=== PATIENT | male | born 1955 | race Caucasian/White ===

== ENCOUNTER 2023-06-30 11:05 | Emergency (ER) | payer OTHER ==
[2023-06-30] MEDS ORDERED: dexAMETHasone 10 MG/ML VIAL ONE ×2 (11:18→11:28)
[2023-06-30] MEDS ORDERED: IPRATROPIUM BROM 0.5MG/2.5ML ONE (11:28)
[2023-06-30] MEDS ORDERED: LEVALBUTEROL 1.25 MG/3 ML NEB ONE (11:28)
[2023-06-30] MEDS ORDERED: CLINDAMYCIN 900MG/D5W 900 MG/50 ML IVPB IV ONE (11:28)
[2023-06-30] MEDS ORDERED: DIPHENHYDRAMINE 50 MG/ML VIAL ONE (11:29)
[2023-06-30 11:34] LABS: Absolute Lymphocytes (CBC) 1.3 K/uL (0.7-4.9); Hematocrit 41.9 % (39.6-49.0); Lymphocytes % 16.2 % (15.3-44.8); MCV 90.2 fL (80-100); MPV 7.9 fL (7.6-11.3); Platelets 294 thou/uL (152-406); RBC Red Blood Cell Count 4.64 M/uL (4.33-5.43)
[2023-06-30 11:36] LABS: Protime INR 1.08
[2023-06-30 11:52] LABS: Albumin 3.9 g/dL (3.4-5.0); Bilirubin Direct 0.2 mg/dL (0-0.2); Bilirubin Indirect, Calculated 0.4 mg/dL (0.2-0.8); Bilirubin Total 0.6 mg/dL (0.2-1.0); Magnesium 1.9 mg/dL (1.6-2.4); Potassium 3.3 mEq/L (3.5-5.1); Protein, Total 8.4 g/dL (6.4-8.2); Troponin High Sensitivity 18.3 pg/mL (<58.9)
[2023-06-30 11:59] LABS: SARS-CoV-2 Antigen Rapid Res Negative (Negative)
--- NOTE | 2023-06-30 12:33 | RAD REPORT ---
EXAM DESCRIPTION: Praveen Single View06/30/2023 11:23 am CLINICAL HISTORY: cough COMPARISON: none FINDINGS: The lungs appear clear of acute infiltrate. The heart may be borderline enlarged. Aorta i s tortuous IMPRESSION: No acute abnormalities displayed
--- NOTE | 2023-06-30 12:33 | RAD REPORT ---
EXAM DESCRIPTION: CT - Soft Tissue Neck W/Contr - 06/30/2023 12:09 pm CLINICAL HISTORY: Neck pain with sore throat. Neck swelling COMPARISON: None. TECHNIQUE: Computed axial tomography of the neck was obtained. 50 cc Isovue 300 was administered in travenously. Coronal and sagittal reconstruction was performed. All CT scans are performed using dose optimization technique as appropriate and may include automated exposure control or mA/KV adjustment according to patient size. FINDINGS: 3.3 centimeter mass is present within the left glottis involving the left vocal cord. A p ortion of the mass extends into the left supraglottis as well as left subglottis regions. There is de struction of portion of the left thyroid cartilage. Airway is narrowed. Left arytenoid cartilage is p ositioned medially and is sclerotic. No lymphadenopathy seen The parotid, submandibular and thyroid glands appear unremarkable. 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 Destruction of a portion of the left thyroid cartilage is present
--- NOTE | 2023-06-30 12:58 | EDPHYS ---
Physician Documentation [facility] Name: Sergey Husain Age: 68 yrs Sex: Male : 1955 Arrival Date: 06/30/2023 Time: 11:05 Bed 3 Private MD: ED Physician Saud Valera HPI: 06/30 12:48 This 68 yrs old Male presents to ER via Ambulatory with complaints of vanessa Breathing Difficulty. 12:48 The patient has shortness of breath with light activity. Onset: The symptoms/episode vanessa began/occurred 4 week(s) ago. Duration: The symptoms are continuous, and are steadily getting worse. The patient's shortness of breath is aggravated by exertion, light activity, supine position, talking, walking. Associated signs and symptoms: Pertinent positives: non-productive cough. Severity of symptoms: At their worst the symptoms were moderate in the emergency department the symptoms are unchanged. The patient has not experienced similar symptoms in the past. Historical: - Allergies: 11:05 PENICILLINS; aa5 - PMHx: 11:05 Hypertensive disorder; aa5 - Immunization history:: Adult Immunizations unknown. - Social history:: Smoking status: Patient denies any tobacco usage or history of. ROS: 12:52 Constitutional: Negative for fever, chills, and weight loss, Eyes: Negative for injury, vanessa pain, redness, and discharge, Neck: Negative for injury, pain, and swelling, Cardiovascular: Negative for chest pain, palpitations, and edema, Abdomen/GI: Negative for abdominal pain, nausea, vomiting, diarrhea, and constipation, Back: Negative for injury and pain, : Negative for injury, bleeding, discharge, and swelling, MS/Extremity: Negative for injury and deformity, Skin: Negative for injury, rash, and discoloration, Neuro: Negative for headache, weakness, numbness, tingling, and seizure, Psych: Negative for depression, anxiety, suicide ideation, homicidal ideation, and hallucinations, Allergy/Immunology: Negative for hives, rash, and allergies, Endocrine: Negative for neck swelling, polydipsia, polyuria, polyphagia, and marked weight changes, Hematologic/Lymphatic: Negative for swollen nodes, abnormal bleeding, and unusual bruising. 12:52 ENT: Positive for hoarseness. 12:52 Neck: Positive for 12:52 Respiratory: Positive for cough, "sounds productive", shortness of breath, at rest. Exam: 12:52 Constitutional: This is a well developed, well nourished patient who is awake, alert, vanessa and in no acute distress. Head/Face: Normocephalic, atraumatic. Eyes: Pupils equal round and reactive to light, extra-ocular motions intact. Lids and lashes normal. Conjunctiva and sclera are non-icteric and not injected. Cornea within normal limits. Periorbital areas with no swelling, redness, or edema. Neck: Trachea midline, no thyromegaly or masses palpated, and no cervical lymphadenopathy. Supple, full range of motion without nuchal rigidity, or vertebral point tenderness. No Meningismus. Chest/axilla: Normal chest wall appearance and motion. Nontender with no deformity. No lesions are appreciated. Cardiovascular: Regular rate and rhythm with a normal S1 and S2. No gallops, murmurs, or rubs. Normal PMI, no JVD. No pulse deficits. Abdomen/GI: Soft, non-tender, with normal bowel sounds. No distension or tympany. No guarding or rebound. No evidence of tenderness throughout. Back: No spinal tenderness. No costovertebral tenderness. Full range of motion. Male : Normal genitalia with no discharge or lesions. Skin: Warm, dry with normal turgor. Normal color with no rashes, no lesions, and no evidence of cellulitis. MS/ Extremity: Pulses equal, no cyanosis. Neurovascular intact. Full, normal range of motion. Neuro: Awake and alert, GCS 15, oriented to person, place, time, and situation. Cranial nerves II-XII grossly intact. Motor strength 5/5 in all extremities. Sensory grossly intact. Cerebellar exam normal. Normal gait. Psych: Awake, alert, with orientation to person, place and time. Behavior, mood, and affect are within normal limits. 12:52 ENT: Mouth: Lips: normal, moist, Oral mucosa: normal, pink and intact, moist, Gums: normal with healthy appearance, Posterior pharynx: is normal, no acute changes, Airway: patent. 12:52 Cardiovascular: Rate: normal, Rhythm: regular, Pulses: no pulse deficits are appreciated, Heart sounds: normal, Edema: is not appreciated, JVD: is not appreciated. 12:52 ECG was reviewed by the Attending Physician. 12:52 Respiratory: mild respiratory distress is noted, Respirations: no acute changes, Breath sounds: stridor, that is moderate, Respiratory rate: 30 Vital Signs: 11:05 BP 185 / 116; Pulse 90; Resp 34 S; Temp 98.6(O); Pulse Ox 92% on R/A; aa5 11:07 Pulse Ox 100% on 2 lpm NC; aa5 12:35 BP 174 / 90; Pulse 94; Resp 28 S; Pulse Ox 100% on 2 lpm NC; aa5 12:47 Weight 108.86 kg (R); Height 6 ft. 0 in. (R); aa5 13:45 BP 193 / 109; Pulse 93; Resp 26 S; Pulse Ox 100% on 2 lpm NC; aa5 13:50 BP 186 / 94; Pulse 102; Resp 26 S; Pulse Ox 99% on R/A; aa5 14:00 BP 169 / 83; Pulse 99; Resp 24 S; Pulse Ox 99% on 2 lpm NC; aa5 12:47 Body Mass Index 32.55 (108.86 kg, 182.88 cm) aa5 MDM: 11:05 Patient medically screened. [facility] 13:17 Differential diagnosis: Bronchitis CHF exacerbation, Chronic Obstructive Pulmonary vanessa Disease obstructed airway, bronchitis, flu, URI, reactive airway, URI, foreign body, pulmonary edema, reactive airway disease. Antibiotic administration: clindamycin. Immunization status: Pneumococcal vaccine: within last 5 years. Influenza vaccine: within last 5 years. Data reviewed: vital signs, nurses notes, lab test result(s), EKG, radiologic studies, plain films. Consideration of Admission/Observation Escalation of care including admission/observation considered. I considered the following discharge prescriptions or medication management in the emergency department Medications were administered in the Emergency Department. See MAR. Test considered but Not performed: MRI: no cervical mri. Historians other than the Patient: pt, good historian. 06/30 11:09 Order name: Basic Metabolic Panel; Complete Time: 12:[address] [facility] 06/30 11:09 Order name: CBC with Diff; Complete Time: 12:[address] [facility] 06/30 11:09 Order name: LFT's; Complete Time: 12:[address] [facility] 06/30 11:09 Order name: Magnesium; Complete Time: 12:[address] [facility] 06/30 11:09 Order name: NT PRO-BNP; Complete Time: 12:[address] [facility] 06/30 11:09 Order name: PT-INR; Complete Time: 12:[address] [facility] 06/30 11:09 Order name: Troponin HS; Complete Time: 12:[address] [facility] 06/30 11:09 Order name: Rapid Strep [facility] 06/30 11:09 Order name: SARS RAPID; Complete Time: 12:[address] [facility] 06/30 11:09 Order name: Flu; Complete Time: 12:[address] [facility] 06/30 11:09 Order name: Lipase; Complete Time: 12:[address] [facility] 06/30 12:01 Order name: Throat Culture [facility] 06/30 11:09 Order name: XRAY Chest (1 view); Complete Time: 12:[address] [facility] 06/30 11:09 Order name: CT Soft Tissue Neck W/contr; Complete Time: 12:[address] [facility] 06/30 11:09 Order name: EKG; Complete Time: 11:[address] [facility] 06/30 11:09 Order name: Cardiac monitoring; Complete Time: 11:[address] [facility] 06/30 11:09 Order name: EKG - Nurse/Tech; Complete Time: 11:[address] [facility] 06/30 11:09 Order name: IV Saline Lock; Complete Time: 11:[address] [facility] 06/30 11:09 Order name: Labs collected and sent; Complete Time: 11:[address] [facility] 06/30 11:09 Order name: O2 Per Protocol; Complete Time: 11:[address] [facility] 06/30 11:09 Order name: O2 Sat Monitoring; Complete Time: 11:[address] [facility] EC:52 Rate is 91 beats/min. Rhythm is regular. QRS [place] is Normal. VT interval is normal. QRS vanessa interval is normal. QT interval is prolonged at 91 msec. No Q waves. T waves are Normal. No ST changes noted. Clinical impression: NSR w/ Non-specific ST/T Changes. Reviewed by me. Administered Medications: 11:10 Drug: Decadron - Dexamethasone IVP 20 mg Route: IVP; Site: right antecubital; aa5 12:35 Follow up: Response: No adverse reaction aa5 11:10 Drug: Famotidine IVP 40 mg Route: IVP; Site: right antecubital; aa5 12:35 Follow up: Response: No adverse reaction aa5 11:21 Drug: diphenhydrAMINE IVP 50 mg Route: IVP; Site: right antecubital; aa5 12:35 Follow up: Response: No adverse reaction aa5 11:26 Drug: Levalbuterol Inhalation 3.75 mg Route: Inhalation; aa5 11:26 Drug: Ipratropium Inhalation Aerosol 0.5 mg Route: Inhalation; aa5 12:35 Drug: Clindamycin IVPB 900 mg Route: IVPB; Infused Over: 30 mins; Site: right aa5 antecubital; 13:05 Follow up: IV Status: Completed infusion aa5 13:45 Drug: hydrALAZINE IVP 10 mg Route: IVP; Site: right antecubital; aa5 14:00 Follow up: Response: No adverse reaction aa5 13:45 Drug: hydrALAZINE PO 10 mg Route: PO; aa5 14:00 Follow up: Response: No adverse reaction aa5 Disposition Summary: 06/30/23 12:57 Transfer Ordered Transfer Location: [facility] vanessa Reason: Higher level of care vanessa Condition: Fair vanessa Problem: new vanessa Symptoms: are unchanged vanessa Accepting Physician: to imu(06/30/23 14:12) kc6 Diagnosis - Malignant neoplasm of glottis - stridor vanessa Forms: - Medication Reconciliation Form vanessa - SBAR form vanessa Signatures: Dispatcher [employer] EDSaud Aparicio MD MD cha Calderon, Audri RN RN aa5 Samara Chilel RN RN kc6 Corrections: (The following items were deleted from the chart) 14:12 12:57 to u vanessa kc6
--- NOTE | 2023-06-30 12:58 | ER ---
Nurse's Notes [facility] Name: Sergey Husain Age: 68 yrs Sex: Male : 1955 Arrival Date: 06/30/2023 Time: 11:05 Bed 3 Private MD: Diagnosis: Malignant neoplasm of glottis-stridor Presentation: 06/30 11:05 Acuity: SAILAJA 2 aa5 11:05 Coronavirus screen: sore throat. Ebola Screen: Patient denies travel to an aa5 Ebola-affected area in the 21 days before illness onset. Initial Sepsis Screen: Does the patient meet any 2 criteria? RR > 20 per min. Does the patient have a suspected source of infection? No. Patient's initial sepsis screen is negative. Risk Assessment: Do you want to hurt yourself or someone else? Patient reports no desire to harm self or others. Onset of symptoms was 2020. 11:05 Chief complaint: Patient states: sore throat and hoarse voice x 2 years ago, pt reports aa5 got worse approximately 1 month ago with SOB and feeling throat tightness. 11:10 Chief complaint: Patient states: Pt walked up to back door of ED audibly wheezing, eh3 stating "I can't breathe". 11:10 Method Of Arrival: Ambulatory 3 Historical: - Allergies: 11:05 PENICILLINS; aa5 - PMHx: 11:05 Hypertensive disorder; aa5 - Immunization history:: Adult Immunizations unknown. - Social history:: Smoking status: Patient denies any tobacco usage or history of. Screenin:33 [facility] ED Fall Risk Assessment (Adult) History of falling in the last 3 months, aa5 including since admission No falls in past 3 months (0 pts) Confusion or Disorientation No (0 pts) Intoxicated or Sedated No (0 pts) Impaired Gait No (0 pts) Mobility Assist Device Used No (0 pt) Altered Elimination No (0 pt) Score/Fall Risk Level 0 - 2 = Low Risk. Abuse screen: Denies threats or abuse. Nutritional screening: No deficits noted. Tuberculosis screening: No symptoms or risk factors identified. Assessment: 11:05 General: Appears distressed, uncomfortable, Behavior is cooperative. Pain: Complains of aa5 pain in throat Quality of pain is described as tightness Pain began 1 month ago and gradually getting worse Is continuous. Neuro: Level of Consciousness is awake, alert, obeys commands, Oriented to person, place, time, situation. Cardiovascular: Heart tones S1 S2 present Rhythm is regular. Respiratory: Reports shortness of breath at rest Airway is patent Respiratory effort is even, labored, Respiratory pattern is tachypnea Breath sounds with wheezes bilaterally. the patient has moderate shortness of breath. GI: Abdomen is round Bowel sounds present X 4 quads. Abd is soft and non tender X 4 quads. : No signs and/or symptoms were reported regarding the genitourinary system. EENT: Reports sore throat x 2 years ago and feeling of tightness to throat x 1 month ago. Audible stridor. . Derm: Skin is pink, warm \\T\\ dry. Musculoskeletal: Range of motion: intact in all extremities. 11:33 Reassessment: Pt reports SOB has improved, neb tx ongoing. Appears more comfortable aa5 than previous assessment. . 12:06 Reassessment: Pt currently in CT . aa5 12:30 Reassessment: Pt back from CT scan . aa5 12:30 Neuro: Level of Consciousness is awake, alert, obeys commands, Oriented to person, aa5 place, time, situation. Respiratory: Airway is patent Respiratory effort is even, Respiratory pattern is tachypnea. Derm: Skin is pink, warm \\T\\ dry. 13:45 Neuro: Level of Consciousness is awake, alert, obeys commands, Oriented to person, aa5 place, time, situation. Respiratory: Airway is patent Respiratory effort is even, Respiratory pattern is tachypnea. Respiratory: dry barky cough noted. Derm: Skin is pink, warm \\T\\ dry. Vital Signs: 11:05 BP 185 / 116; Pulse 90; Resp 34 S; Temp 98.6(O); Pulse Ox 92% on R/A; aa5 11:07 Pulse Ox 100% on 2 lpm NC; aa5 12:35 BP 174 / 90; Pulse 94; Resp 28 S; Pulse Ox 100% on 2 lpm NC; aa5 12:47 Weight 108.86 kg (R); Height 6 ft. 0 in. (R); aa5 13:45 BP 193 / 109; Pulse 93; Resp 26 S; Pulse Ox 100% on 2 lpm NC; aa5 13:50 BP 186 / 94; Pulse 102; Resp 26 S; Pulse Ox 99% on R/A; aa5 14:00 BP 169 / 83; Pulse 99; Resp 24 S; Pulse Ox 99% on 2 lpm NC; aa5 12:47 Body Mass Index 32.55 (108.86 kg, 182.88 cm) aa5 ED Course: 11:05 Patient arrived in ED. aa5 11:05 Saud Valera MD is Attending Physician. [facility] 11:05 Sol Shi, LUZMARIA is Primary Nurse. aa5 11:05 Patient has correct armband on for positive identification. Bed in low position. Call aa5 light in reach. Side rails up X2. Client placed on continuous cardiac and pulse oximetry monitoring. NIBP monitoring applied. 11:10 Inserted saline lock: 20 gauge in right antecubital area, using aseptic technique. aa5 Blood collected. inserted by Albert Griffiths RN. 11:25 XRAY Chest (1 view) In Process Unspecified. EDMS 11:27 Triage completed. aa5 12:11 CT Soft Tissue Neck W/contr In Process Unspecified. EDMS 14:12 No provider procedures requiring assistance completed. Patient transferred, IV remains kc6 in place. Administered Medications: 11:10 Drug: Decadron - Dexamethasone IVP 20 mg Route: IVP; Site: right antecubital; aa5 12:35 Follow up: Response: No adverse reaction aa5 11:10 Drug: Famotidine IVP 40 mg Route: IVP; Site: right antecubital; aa5 12:35 Follow up: Response: No adverse reaction aa5 11:21 Drug: diphenhydrAMINE IVP 50 mg Route: IVP; Site: right antecubital; aa5 12:35 Follow up: Response: No adverse reaction aa5 11:26 Drug: Levalbuterol Inhalation 3.75 mg Route: Inhalation; aa5 11:26 Drug: Ipratropium Inhalation Aerosol 0.5 mg Route: Inhalation; aa5 12:35 Drug: Clindamycin IVPB 900 mg Route: IVPB; Infused Over: 30 mins; Site: right aa5 antecubital; 13:05 Follow up: IV Status: Completed infusion aa5 13:45 Drug: hydrALAZINE IVP 10 mg Route: IVP; Site: right antecubital; aa5 14:00 Follow up: Response: No adverse reaction aa5 13:45 Drug: hydrALAZINE PO 10 mg Route: PO; aa5 14:00 Follow up: Response: No adverse reaction aa5 Medication: 14:12 VIS not applicable for this client. kc6 Outcome: 12:57 ER care complete, transfer ordered by MD. mendez 14:12 Transferred by ground EMS to [facility], [facility], Transfer form completed. kc6 14:12 Condition: stable 14:12 Instructed on the need for transfer. 14:12 Patient left the ED. kc6 Signatures: Dispatcher [employer] EDSaud Aparicio MD MD cha Calderon, Audri, RN RN aa5 Cassidy Segura RN RN [email or web address] Samara Chilel RN RN kc6 Yaya Simons, RN RN rs5 Corrections: (The following items were deleted from the chart) 11:14 11:12 Inserted saline lock: 22 gauge in right antecubital area, using aseptic aa5 technique. Blood collected. rs5 11:28 11:05 Initial Sepsis Screen: Does the patient meet any 2 criteria? No. Patient's aa5 initial sepsis screen is negative. Does the patient have a suspected source of infection? No. Patient's initial sepsis screen is negative. aa5 11:36 11:05 Respiratory: Reports shortness of breath at rest Airway is patent Respiratory aa5 effort is even, labored, Respiratory pattern is tachypnea Breath sounds with wheezes bilaterally. aa5 11:37 11:05 EENT: Reports sore throat x 2 years ago and feeling of tightness to throat x 1 aa5 month ago . aa5 13:26 12:09 BP 174 / 90; Pulse 94bpm; Resp 28bpm; Spontaneous; Pulse Ox 100% 2 lpm Nasal aa5 Cannula; aa5 13:26 12:19 BP 174 / 90; Pulse 94bpm; Resp 28bpm; Spontaneous; Pulse Ox 100% 2 lpm Nasal aa5 Cannula; aa5 13:27 11:05 EENT: Reports sore throat x 2 years ago and feeling of tightness to throat x 1 aa5 month ago . aa5 13:51 11:05 EENT: Reports sore throat x 2 years ago and feeling of tightness to throat x 1 aa5 month ago. Audible heavy breathing noted. . aa5 13:51 13:45 BP 193 / 109; Pulse 93bpm; Resp 16bpm; Spontaneous; Pulse Ox 100% RA; aa5 aa5 13:51 13:45 BP 193 / 109; Pulse 93bpm; Resp 26bpm; Spontaneous; Pulse Ox 100% RA; aa5 aa5
[2023-06-30] MEDS ORDERED: HYDRALAZINE HCL 10 MG TABLET ONE (13:48)
[2023-06-30] MEDS ORDERED: HYDRALAZINE HCL 20 MG/ML VIAL ONE (13:49)
[2023-06-30 14:49] VITALS: TEMP 98.6
[2023-06-30 14:50] VITALS: O2SAT 100
[2023-06-30 14:53] VITALS: BP 193/109
--- NOTE | 2023-07-02 19:08 | EKG ---
Test Date: 2023-06-30 Test Time: 11:48:12 Annual Greenhouse Manager: LAKESHA MEASUREMENT RESULTS: Intervals: Rate: 91 AR: 118 QRSD: 96 QT: 408 QTc: 501 [place]: P: 60 AR: 118 QRS: 65 T: 76 INTERPRETIVE STATEMENTS: Normal sinus rhythm Prolonged QT Abnormal ECG No previous ECG available for comparison Electronically Signed On 07-02-23 19:05:36 CDT by Antonio Sanabria
== END 2023-06-30 14:12 | disposition short-term general hospital (02) ==
LOC: ER 11:05
DX: C32.0 Malignant neoplasm of glottis (principal); Z20.822 Contact with and (suspected) exposure to COVID-19; Z88.0 Allergy status to penicillin
CPT/HCPCS: 96365; 93005; 87070; 85025; 80048; 36415; 83735; 85610; 80076; 87081; 84484; 83690; 83880; 87804 ×2; 70491; 71045; 96375; 99285; 87811; Q9967; J0360; J1200; J7614; J7644; J1100 ×2